=== PATIENT | male | born 1960 | race Caucasian/White ===

== ENCOUNTER → 2017-04-27 | Outpatient (CLI) | payer BC, MEDICARE ==
[~2017-04-27] MED LIST: FLEXERIL10 MG PO; IBUPROFEN800 MG PO; LORTAB 5/500 TA1 TA1 PO; PREDNISONE PO; PRILOSEC20 MG PO; PRINIVIL40 MG PO; ZESTRIL40 MG PO
--- NOTE | ~2017-04-27 | CT57 ---
[facility] A Service of [facility] / [facility] RADIOLOGY TEXT RESULTS PATIENT: MAAME WISE LOCATION: [facility] : 60 UNIT #: [id number] AGE: [address]: Nicci Correia SEX: M ORDER DR: [id number] [facility]. [place], [place] [address] [id number] O MR#: [id number] Acc #: [id number] NAME: MAAME WISE : 1960 SEX: M STUDY DATE/TIME: 04/27/2017 11:30 UNIT: [facility] ROOM: STUDY DESCRIPTION: CT Chest Wo Cont Attending Physician: Nicci Correia A.P.R.N. Referring Physician: Nicci Correia A.P.R.N. Ordering Physician: Nicci Correia A.P.R.N. Primary Care Physician: Yaritza Hart M.D. MEDICAL IMAGING REPORT This report is preliminary unless electronic signature is present EXAM CT chest without contrast INDICATIONS Shortness of breath for [address] chest performed without contrast. Coronal and sagittal reformatted images were obtained. This CT exam was performed with one or more of the following radiation dose reduction techniques: automatic exposure control, adjustment of mA and/or kV according to patient size, and iterative reconstruction. COMPARISON 09/30/2012 FINDINGS The study is somewhat limited due to respiratory motion artifact. Within the limitations of the study there is no evidence for suspicious pulmonary nodule. No evidence for airspace consolidation. No suspicious lymphadenopathy. No pleural effusion. Limited imaging of the upper abdomen shows diffuse fatty infiltration of the liver. This is stable. Bone windows are unremarkable. IMPRESSION Limited study due to respiratory motion artifact. No evidence for suspicious pulmonary nodule or airspace consolidation within the limitations of the study. Dictated by... Gadiel Turner M.D. THIS IS AN ELECTRONICALLY VERIFIED REPORT [facility] A Service of [facility] / [facility] RADIOLOGY TEXT RESULTS PATIENT: MAAME WISE [facility] #: [id number] : 60 UNIT #: [id number] AGE: [address]: Nicci Correia SEX: M ORDER DR: Gadiel Turner M.D. at 04/28/2017 8:00 AM ARS/to TD: 04/27/2017 20:12 JOB #: [id number] MEDICAL IMAGING REPORT Page 1 of 1 COPY
== END | disposition home or self-care (01) ==
LOC: CCAT 10:08
DX: R06.00 Dyspnea, unspecified (principal); R53.83 Other fatigue; R06.83 Snoring
CPT/HCPCS: 71250; 94060; 94726; 94729